=== PATIENT | male | born 1955 | race Caucasian/White ===

== ENCOUNTER 2017-07-27 23:55 | Emergency (ER) | payer SELFPAY ==
[2017-07-27 23:57] VITALS: BP 135/105; PULSE 73; RESP 16; TEMP 37; O2SAT 98; BMI 24.4
[2017-07-28] VITALS (11 sets, daily range): BP systolic 114–199; BP diastolic 67–106; PULSE 76–102; RESP 15–24; O2SAT 94–98
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
--- NOTE | 2017-07-28 00:49 | EKG12_ITS ---
Test Reason : Blood Pressure : / mmHG Vent. Rate : 074 BPM Atrial Rate : 074 BPM P-R Int : 150 ms QRS Dur : 090 ms QT Int : 388 ms P-R-T Axes : 063 036 049 degrees QTc Int : 430 ms Normal sinus rhythm Normal ECG Confirmed by HEDY JAMES MD ([id number]), index editor TON FRAIRE ([id number] on 08/01/2017 4:34:34 PM Referred By: MANISHA Confirmed By:HEDY JAMES MD
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
[2017-07-28 01:34] LABS: Absolute Lymphocyte Count 0.92 X10^3/ul (0.83-4.51); Absolute Neutrophil Count 13.5 X10^3/uL (2.0-7.7); Basophil# 0.03 X10^3/uL; Basophil% 0.2 % (0-1); Eosinophil# 0.01 X10^3/uL; Eosinophils% 0.1 % (0-5); Hematocrit 47.3 % (40-54); Hemoglobin 16.8 g/dl (13.0-16.5); Lymphocyte # 0.92 X10^3/ul (4.0); Lymphocyte % 5.8 % (19-41); Mean Corp Hgb Conc 35.5 g/gl (32-36); Mean Corpuscular Hgb 30.5 pg (27.0-32.0); Mean Corpuscular Volume 85.8 fL (80-94); Mean Platelet Vol. 9.6 fl (6.2-12.0); Monocyte# 1.44 X10^3/uL; Neutrophil # 13.46 X10^3/uL (2.7-7.7); Neutrophil % 84.5 % (47-70); Platelet Count 257 K/mm3 (150-450); RBC Distribution Width CV 12.6 % (11.6-14.6); RBC Distribution Width SD 39.6 fl (35.1-43.9); Red Blood Count 5.51 M/mm3 (4.6-6.2); White Blood Count 15.9 K/mm3 (4.4-11.0)
[2017-07-28 01:42] LABS: POSITIVE COUNT NO; POSITIVE DIFFERENTIAL NO; POSITIVE MORPHOLOGY NO
[2017-07-28 01:58] LABS: Alcohol, Blood (Medical)-Serum < 3.0 mg/dL
[2017-07-28 02:03] LABS: AST(SGOT) 28 U/L (15-37); Alanine Aminotransfer ALT/SGPT 22 U/L (16-61); Albumin, Serum 4.1 g/dL (3.2-5.0); Alkaline Phosphatase 106 U/L (45-117); Anion Gap 10 (5-15); BUN 24 mg/dL (7-18); BUN/Creat Ratio 22.4 RATIO (10-20); Bilirubin, Direct 0.34 mg/dL (0.00-0.30); Calcium,Total 8.8 mg/dL (8.5-10.1); Chloride 104 mmol/L (98-107); Creatinine, Serum 1.07 mg/dL (0.70-1.30); EST Glomerular Filtration Rate 74 mL/min (>60); Est Glom Filt Rate - Afr Amer 90 mL/min (>60); Estimated Creatinine Clearance 79.86 ml/min; Globulin 3.9 g/dL (2.2-4.2); Glucose 132 mg/dL (74-106); Potassium 3.7 mmol/L (3.5-5.1); Sodium Level 137 mmol/L (136-145); Thyroid Stim Hormone (TSH) 6.79 uIU/mL (0.358-3.74)
--- NOTE | 2017-07-28 02:18 | ED.RN ---
PT MOTHER CONTACT BY [facility]. NAME IS IRLANDA, PHONE NUMBER IS [phone].
--- NOTE | 2017-07-28 03:10 | ED.RN ---
pt attempted to give urine sample, pt unable to pee at this time. pt reports he has not eaten or drank in the last couple days. pt given snack, water and juice. will try again at further time.
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
[2017-07-28 05:09] LABS: Amphetamine Urine VISTA NEGATIVE (<1000 ng/mL); Barbiturate Urine VISTA NEGATIVE (< 200 ng/mL); Benzodiazepine Urine VISTA NEGATIVE (< 200 ng/mL); Cocaine Urine VISTA NEGATIVE (< 300 ng/mL); Ecstacy Urine VISTA NEGATIVE (< 500 ng/mL); Methadone Urine VISTA NEGATIVE (< 300 ng/mL); PCP Urine VISTA NEGATIVE (< 25 ng/mL); THC Urine VISTA NEGATIVE (< 50 ng/mL); Vista UDS pH Range 6
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
[2017-07-28 05:12] LABS: Bacteria 0 SEEN /hpf (None Seen); Red Blood Cells-Urine 0 SEEN /hpf (0-5)
[2017-07-28 05:30] LABS: Color, Urine Yellow (Yellow); Glucose, Dipstick 50 mg/dl (Normal); Ketone-Dipstick 50 mg/dl (Negative); Leukocyte Esterase-Dipstick 25 /ul (Negative); Nitrite-Dipstick Negative (Negative); Occult Blood-Urine Negative /ul (Negative); Protein-Dipstick 15 mg/dl (Negative); Specific Gravity, Urine 1.025 (1.002-1.030); Urine Clarity Clear (Clear); Urine Urobilinogen 4 mg/dl (Normal)
[2017-07-28 05:33] LABS: Urine Bilirubin Dipstick 1 mg/dL (Negative)
[2017-07-28 05:40] LABS: Mucous, Urine 2+ /hpf (<or=2+); Squamous Epithelial Cells - UA 0-5 SEEN /hpf (0-5); White Blood Cells 0-5 SEEN /hpf (0-5)
[2017-07-28 05:51] LABS: T4 Free Direct 1.54 ng/dL (0.76-1.46)
--- NOTE | 2017-07-28 07:03 | NURSING ---
SHERITA FROM CRISIS SAID THAT [facility] IS FULL AND PATIENT CHART IS PUT ON THE DR SAHNI TO BE REVIEWED THIS MORNING
--- NOTE | 2017-07-28 07:59 | ED.RN ---
SHERITA CALLED AT [phone] AND STATED THAT [facility] CONTACTED HER AND PATIENT SHOULD BE TRANSFERRED TO THEIR FACILITY SOMETIME TODAY
--- NOTE | 2017-07-28 09:23 | ED.RN ---
PT INCONTINENT OF STOOL ALL OVER BED AND CLOTHING. BED CHANGED. PT AWAKE AND ALERT
[2017-07-28 09:49] LABS: T3 Total - Triiodothyronine 1.07 ng/mL (0.6-1.81)
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
--- NOTE | 2017-07-28 13:54 | ED.RN ---
PT HAS TAKEN RED MARKER FROM THE ROOM AND DRAWN LINES ON HIMSELF. SCHAFFER UP AND DOWN ARMS. MARKERS AND PHONE RREMOVED FROM ROOM
== END 2017-07-28 19:20 ==
PROVIDERS: Emergency Provider Emergency Medicine
DX: F23 Brief psychotic disorder (principal); I10 Essential (primary) hypertension; Z79.82 Long term (current) use of aspirin; S00.81XA Abrasion of other part of head, initial encounter; S00.31XA Abrasion of nose, initial encounter; V47.9XXA Unspecified car occupant injured in collision with fixed or stationary object in traffic accident, initial encounter; Y93.9 Activity, unspecified; Y92.9 Unspecified place or not applicable
CPT/HCPCS: 36415; 70450; 71045; 80048; 80076; 80307; 80320; 81001; 84439; 84443; 84480; 85025; 93005; 99285; G0480